=== PATIENT | male | born 1970 | race Caucasian/White ===

== ENCOUNTER 2020-10-16 10:42 | Inpatient (IN) ==
[2020-10-16] MEDS ORDERED: SODIUM CHLORIDE 0.9% 1000ML 2,000 ML IV ONE (10:58)
[2020-10-16 11:41] LABS: iSTAT Hemoglobin 16.7 g/dl (14.0-18.0); iSTAT Ionized Calcium 1.17 mmol/l (1.12-1.32); iSTAT Potassium 4.1 mmol/L (3.3-5.0)
[2020-10-16] MEDS ORDERED: OPTIRAY 320 100ml IV ONE (11:46)
--- NOTE | 2020-10-16 11:52 | Emergency Department Note ---
Impression & Plan Peritonsillar abscess, Uvular edema, Leukocytosis ED Provider Note NAME: DARRELL CAMPO AGE: 50 SEX: M : 1970 ARRIVES VIA: Walk-In INFORMANT: Patient ED PROVIDER(S): Elvis Esquivel DO CHIEF COMPLAINT: Swelling of the right side of his neck HPI: Patient is a 50-year-old male who presents to the ER for swelling of the right side of his neck. He notes that he has been having trouble swallowing and this has been getting worse over the past 24 hours. He denies any headache or change in vision. Has been gagging on some secretions. He has trouble opening his mouth. Denies any chest pain or shortness of breath. No nausea, vomiting, or diarrhea. He was seen at [facility] and referred him. He had a strep swab which was negative at [facility]. Denies any dental pain. Patient was given steroids prior to being transferred from [facility]. ROS: See above HPI for pertinent positives & negatives. A total of 10 systems reviewed and were otherwise negative. PAST MEDICAL HISTORY:See Below PAST SURGICAL HISTORY:See Below FAMILY HISTORY:See Below SOCIAL HISTORY:See Below HOME MEDICATIONS:See Below ALLERGIES:See Below VITALS:See Below PHYSICAL EXAMINATION: GENERAL: Sitting up in bed, alert, well appearing, well nourished, no distress, non-toxic EYE EXAM: normal conjunctiva. OROPHARYNX: Significantly enlarged uvula blocking the posterior oropharynx. No appreciable abscess. No swelling below the tongue. No obvious abscess along dental gumline. NECK: supple, fullness under the right mandible over the right side of the neck LUNGS: Clear to auscultation. Normal chest wall mechanics HEART: no murmurs, S1 normal and S2 normal ABDOMEN: abdomen soft, non-tender, normo-active bowel sounds, no masses, no rebound or guarding. UPPER EXTREMITIES: upper extremities are grossly normal. LOWER EXTREMITIES: No pitting edema. NEURO EXAM: Normal sensorium, cranial nerves II-XII grossly intact, normal speech, no gross weakness of arms, no gross weakness of legs. MEDICAL DECISION MAKING: Patient is a 50-year-old male that presents the ER for trouble swallowing and opening his mouth. On exam he does have trismus, significantly swollen uvula and fullness in the posterior pharynx. IV was established blood work was obtained. Strep was negative as an outpatient. Labs show leukocytosis 17,000. No significant anemia. BMP slightly elevated chloride. LFTs bilirubin was unremarkable. Covid was negative. Discussed with Dr. CHO following having a CT which showed a 3 x 2 cm peritonsillar abscess. Patient was given IV antibiotics. He received IM steroids prior to arrival. He was updated bedside. Discussed with the hospitalist for admission as Dr. Anderson will take him to the OR for the peritonsillar abscess. Triage Nursing notes reviewed. Limited review of prior medical records performed Vital Signs: reviewed and remarkable for no significant abnormalities Differential diagnosis: Differential diagnosis includes etiologies such as viral syndrome, tonsillitis, streptococcal pharyngitis, mononucleosis, peritonsillar abscess, retropharyngeal abscess, otitis, pneumonia, influenza, as well as others were entertained. ER treatment provided: See below Diagnostics interpreted by me: ECG: none Cardiac Monitoring: An order was placed for continuous cardiac monitoring. The monitor shows a rate of 70 with sinus rhythm. Laboratory studies: As stated above and show below. Imaging studies: CT of the neck as discussed above Consultation(s): Discussed with Dr. Anderson who recommended admission and he will take to the OR Discussed with Dr. Brianda Francis for admission Procedures: none Critical Care: None Past Med/Surg History Medical History No pertinent past medical history Tick bites Surgical History No significant past surgical history Family History Other Cancer Heart problem Social History (Updated 10/16/20 @ 13:25 by Brianda Francis MD) Smoking Status: Former smoker Tobacco Type: Cigarettes Age Quit Using Tobacco: 33; Hx Alcohol Use: Yes Alcohol Intake Frequency: Monthly or Less Hx Substance Use: No Preferred Language: [place] current occupational status: employed current occupation: [employer] Feels Safe at Home: Yes Allergies Allergies Allergy/AdvReac Type Severity Reaction Status Date / Time No Known Allergies Allergy Unverified 10/16/20 13:29 Home Meds Home Medications Medication Instructions Recorded Confirmed olive leaf extract 250 mg PO BID 10/16/20 10/16/20 Results & Data (ED) Vital Signs Vital Signs - 24 hr 10/16/20 10:45 Temperature 36.8 C Temperature Source Temporal Artery Scan Pulse Rate 73 Respiratory Rate 20 Respiratory Effort / Characteristics Non-Labored Spontaneous Respiratory Depth Normal Blood Pressure 107/70 Blood Pressure Mean 82 Blood Pressure Position Sitting Pulse Oximetry 100 Oxygen Delivery Method Room Air Sepsis Recent Fever Within 48 Hours Yes Sepsis New/Unexplained Change in Mental Status N/A Sepsis Action Taken by Nursing MD Previously Notified Laboratory Data Result diagrams: 10/16/20 11:19 10/16/20 11:19 Lab Results 10/16/20 10/16/20 10/16/20 Range/Units 11:19 11:19 11:28 WBC 17.57 H (4.8-10.8) K/uL RBC 5.23 (4.7-6.1) M/uL Hgb 16.7 (14.0-18.0) g/dL POC Hgb 16.7 (14.0-18.0) g/dl Hct 48.4 (42-52) % POC Hct 49 (42-52) % MCV 92.5 (80-100) fL MCH 31.9 (25-34) pg MCHC 34.5 (32-36) g/dL RDW Std Deviation 46.2 (36.4-46.3) fL RDW Coeff of Yared 13.6 (11.5-14.5) % Plt Count 225 (130-400) K/uL MPV 9.6 (7.4-10.4) fL Immature Gran % (Auto) 0.2 % Neut % (Auto) 85.2 % Lymph % (Auto) 5.4 % [place] % (Auto) 9.0 % Eos % (Auto) 0.1 % Baso % (Auto) 0.1 % Neut # (Auto) 15.00 H (1.4-6.5) K/uL Lymph # (Auto) 0.94 L (1.2-3.4) K/uL [place] # (Auto) 1.58 H (0.11-0.59) K/uL Eos # (Auto) 0.01 (0-0.5) K/uL Baso # (Auto) 0.01 (0-0.2) K/uL Immature Gran # (Auto) 0.03 H (0.00-0.02) K/uL POC Sodium 139 (135-144) mmol/L Sodium 139 (136-145) mmol/L POC Potassium 4.1 (3.3-5.0) mmol/L Potassium 4.0 (3.5-5.1) mmol/L POC Chloride 104 (101-112) mmol/L Chloride 108 H (98-107) mmol/L Carbon Dioxide 24 (21-32) mmol/L POC Total CO2 21 L (24-31) mmol/L Anion Gap 7.0 (3-11) POC Anion Gap 20.0 (16-25) mmol/L POC BUN 16 (7-18) mg/dl BUN 16 (7-18) mg/dl Creatinine 1.11 (0.6-1.4) mg/dl POC Creatinine 1.0 (0.6-1.3) mg/dl Est Cr Clr Drug Dosing 81.8 ml/min Est GFR ( Amer) 89.3 ml/min Est GFR (Non-Af Amer) 77.0 ml/min BUN/Creatinine Ratio 14.2 (10-20) Glucose 106 H (70-99) mg/dl POC Glucose (other) 119 H (70-99) mg/dl Calcium 8.6 (8.5-10.1) mg/dl POC Ioniz Calcium Benjamin 1.17 (1.12-1.32) mmol/l Total Bilirubin 1.1 H (0.2-1) mg/dl AST 14 L (15-37) U/L ALT 22 (12-78) U/L Alkaline Phosphatase 63 (45-117) U/L Total Protein 7.1 (6.4-8.2) gm/dl Albumin 3.6 (3.4-5.0) gm/dl Globulin 3.5 (2.5-4.0) gm/dl Albumin/Globulin Ratio 1.0 (0.9-2) COVID-19 Eval Order SARS-CoV-2 (PCR) (Negative) 10/16/20 10/16/20 Range/Units 12:44 12:44 WBC (4.8-10.8) K/uL RBC (4.7-6.1) M/uL Hgb (14.0-18.0) g/dL POC Hgb (14.0-18.0) g/dl Hct (42-52) % POC Hct (42-52) % MCV (80-100) fL MCH (25-34) pg MCHC (32-36) g/dL RDW Std Deviation (36.4-46.3) fL RDW Coeff of Yared (11.5-14.5) % Plt Count (130-400) K/uL MPV (7.4-10.4) fL Immature Gran % (Auto) % Neut % (Auto) % Lymph % (Auto) % [place] % (Auto) % Eos % (Auto) % Baso % (Auto) % Neut # (Auto) (1.4-6.5) K/uL Lymph # (Auto) (1.2-3.4) K/uL [place] # (Auto) (0.11-0.59) K/uL Eos # (Auto) (0-0.5) K/uL Baso # (Auto) (0-0.2) K/uL Immature Gran # (Auto) (0.00-0.02) K/uL POC Sodium (135-144) mmol/L Sodium (136-145) mmol/L POC Potassium (3.3-5.0) mmol/L Potassium (3.5-5.1) mmol/L POC Chloride (101-112) mmol/L Chloride (98-107) mmol/L Carbon Dioxide (21-32) mmol/L POC Total CO2 (24-31) mmol/L Anion Gap (3-11) POC Anion Gap (16-25) mmol/L POC BUN (7-18) mg/dl BUN (7-18) mg/dl Creatinine (0.6-1.4) mg/dl POC Creatinine (0.6-1.3) mg/dl Est Cr Clr Drug Dosing ml/min Est GFR ( Amer) ml/min Est GFR (Non-Af Amer) ml/min BUN/Creatinine Ratio (10-20) Glucose (70-99) mg/dl POC Glucose (other) (70-99) mg/dl Calcium (8.5-10.1) mg/dl POC Ioniz Calcium Benjamin (1.12-1.32) mmol/l Total Bilirubin (0.2-1) mg/dl AST (15-37) U/L ALT (12-78) U/L Alkaline Phosphatase (45-117) U/L Total Protein (6.4-8.2) gm/dl Albumin (3.4-5.0) gm/dl Globulin (2.5-4.0) gm/dl Albumin/Globulin Ratio (0.9-2) COVID-19 Eval Order Covid19 at [facility] SARS-CoV-2 (PCR) NEGATIVE (Negative) Administered Medications Discontinued Medications Dexamethasone (Dexamethasone Sod Inj 4 Mg/Ml Vial) Confirm Administered Dose 8 mg .ROUTE .STK-MED ONE Stop: 10/16/20 13:32 Last Admin: 10/16/20 13:37 Dose: Not Given Documented by: [id number] Sodium Chloride (Nss 1000ml) 2,000 mls @ 999 mls/hr IV .Q2H1M ONE Stop: 10/16/20 12:58 Last Infusion: 10/16/20 13:25 Dose: 0 mls/hr Documented by: [id number] Admin: 10/16/20 11:07 Dose: 999 mls/hr Documented by: [id number] Ampicillin Sodium/Sulbactam Sodium 3,000 mg/ Sodium Chloride 108 mls @ 200 mls/hr IV NOW STA; Protocol Stop: 10/16/20 12:48 Last Infusion: 10/16/20 13:25 Dose: 0 mls/hr Documented by: [id number] Admin: 10/16/20 12:51 Dose: 200 mls/hr Documented by: [id number] Dexamethasone 6 mg/ Syringe 1.5 mls @ 1 mls/min IV ONE ONE Stop: 10/16/20 13:21 Last Admin: 10/16/20 13:37 Dose: 1 mls/min Documented by: [id number] Ioversol (Optiray 320 100ml) 95 ml IV ONCE ONE Stop: 10/16/20 11:47 Last Admin: 10/16/20 11:47 Dose: 95 ml Documented by: [id number] Imaging Data Radiologist's Impression: Soft Tissue Neck CT 10/16/20 10:58 CT soft tissue neck w con HISTORY: trouble swallow neck swelling TECHNIQUE: Multiaxial CT images of the neck were performed following the intravenous administration of 95 cc of Optiray 320 and reformatted in the sagittal and coronal plane at the workstation by the radiologist. COMPARISON STUDY: None. FINDINGS: The visualized brain parenchyma and orbits are unremarkable. The pterygopalatine fossa are well-maintained. Asymmetric mucosal thickening and edema within the right nasopharynx, right oropharynx, and right hypopharynx to the level of the pyriform sinuses with mild mass effect along the airway. However, no significant airway narrowing. The epiglottis are normal in thickness. The uvula is also markedly thickened and edematous measuring up to 1.5 cm in diameter. Best seen on axial images 85 through 123 there is a mult iseptated peripherally enhancing right peritonsillar fluid collection consistent with an abscess. This has an elongated appearance and measures up to 3 cm in the craniocaudal dimension and up to 1.3 cm in axial dimension. There is edema/fat stranding within the right paratracheal fat spaces and adjacent to the right submandibular gland. There are few mildly enlarged right submandibular lymph nodes and a borderline enlarged right upper cervical lymph nodes. These are likely reactive. There is a 6 mm left parotid gland stone. The thyroid gland enhances normally. The major cervical vessels appear patent. Mild mucosal thickening within the maxillary sinuses. The mastoid air cells are clear. No s uspicious lytic or blastic osseous lesions. The lung apices are clear. No pneumothorax. IMPRESSION: 1. A 3.0 x 1.5 cm elongated right peritonsillar multiseptated abscess as described above. 2. Mucosal thickening and enhancement along the right pharyngeal/hypopharyngeal soft tissues. This is consistent with a superimposed pharyngitis and could be reactive to the peritonsillar abscess. 3. Marked thickening of the uvula. 4. Mild right cervical and submandibular lymphadenopathy. This is likely reactive. 5. Consider follow-up to ensure resolution of the suspected right peritonsillar abscess and to exclude the less likely possibility of an underlying lesion. ACT 112: Negative or not required by law. Electronically signed by: Link York M.D. 10/16/2020 12:10 PM Discharge Plan Visit Data Chief Complaint: Illness Stated Complaint: SWOLLEN GLANDS/TIGHTENED AIRWAY ED Provider: Elvis Esquivel Discharge Problem: Peritonsillar abscess, Uvular edema, Leukocytosis Forms Stand Alone Forms: My [facility] [employer] Apps Prescriptions Prescriptions: No Action olive leaf extract 250 mg Capsule 250 mg PO BID RF: 0 Discharge Problem: Leukocytosis Qualifiers: Leukocytosis type: unspecified Qualified Code(s): D72.829 - Elevated white blood cell count, unspecified
[2020-10-16 12:01] LABS: Basophils # (auto) 0.01 K/uL (0-0.2); Basophils % (auto) 0.1 %; Eosinophils # (auto) 0.01 K/uL (0-0.5); Eosinophils % (auto) 0.1 %; Hematocrit (blood only) 48.4 % (42-52); Hemoglobin 16.7 g/dL (14.0-18.0); Immature Granulocytes # (auto) 0.03 K/uL (0.00-0.02); Immature Granulocytes % (auto) 0.2 %; Lymphocytes # (auto) 0.94 K/uL (1.2-3.4); Lymphocytes % (auto) 5.4 %; Mean Corpuscular Hemoglobin 31.9 pg (25-34); Mean Corpuscular Hgb Conc 34.5 g/dL (32-36); Mean Corpuscular Volume 92.5 fL (80-100); Mean Platelet Volume 9.6 fL (7.4-10.4); Monocytes # (auto) 1.58 K/uL (0.11-0.59); Neutrophils % (auto) 85.2 %; Platelet Count 225 K/uL (130-400); RDW Coefficient of Variation 13.6 % (11.5-14.5); RDW Standard Deviation 46.2 fL (36.4-46.3); Red Blood Count 5.23 M/uL (4.7-6.1); White Blood Count 17.57 K/uL (4.8-10.8)
--- NOTE | 2020-10-16 12:12 | CT Scan Report ---
CT soft tissue neck w con HISTORY: trouble swallow neck swelling TECHNIQUE: Multiaxial CT images of the neck were performed following the intravenous administration o f 95 cc of Optiray 320 and reformatted in the sagittal and coronal plane at the workstation by the ra diologist. COMPARISON STUDY: None. FINDINGS: The visualized brain parenchyma and orbits are unremarkable. The pterygopalatine fossa are well-maintained. Asymmetric mucosal thickening and edema within the right nasopharynx, right orophary nx, and right hypopharynx to the level of the pyriform sinuses with mild mass effect along the airway . However, no significant airway narrowing. The epiglottis are normal in thickness. The uvula is also markedly thickened and edematous measuring up to 1.5 cm in diameter. Best seen on axial images 85 th rough 123 there is a multiseptated peripherally enhancing right peritonsillar fluid collection consis tent with an abscess. This has an elongated appearance and measures up to 3 cm in the craniocaudal di mension and up to 1.3 cm in axial dimension. There is edema/fat stranding within the right paratrache al fat spaces and adjacent to the right submandibular gland. There are few mildly enlarged right subm andibular lymph nodes and a borderline enlarged right upper cervical lymph nodes. These are likely re active. There is a 6 mm left parotid gland stone. The thyroid gland enhances normally. The major cerv ical vessels appear patent. Mild mucosal thickening within the maxillary sinuses. The mastoid air viki ls are clear. No suspicious lytic or blastic osseous lesions. The lung apices are clear. No pneumotho rax. IMPRESSION: 1. A 3.0 x 1.5 cm elongated right peritonsillar multiseptated abscess as described above. 2. Mucosal thickening and enhancement along the right pharyngeal/hypopharyngeal soft tissues. This is consistent with a superimposed pharyngitis and could be reactive to the peritonsillar abscess. 3. Marked thickening of the uvula. 4. Mild right cervical and submandibular lymphadenopathy. This is likely reactive. 5. Consider follow-up to ensure resolution of the suspected right peritonsillar abscess and to exclud e the less likely possibility of an underlying lesion. ACT 112: Negative or not required by law. Electronically signed by: Link Yokr M.D. 10/16/2020 12:10 PM
[2020-10-16] MEDS ORDERED: AMPICILLIN/SULBACTAM SOD 3,000 MG in 0.9 % SODIUM CHLORIDE 100 ML IV STA (12:16)
[2020-10-16 12:17] LABS: Albumin Level 3.6 gm/dl (3.4-5.0); BUN Creatinine Ratio 14.2 (10-20); Calcium 8.6 mg/dl (8.5-10.1); Creatinine Clr Calc Pharmacy 81.8 ml/min; Est GFR (African American) 89.3 ml/min
[2020-10-16 12:20] LABS: Bilirubin,Total 1.1 mg/dl (0.2-1); Globulin 3.5 gm/dl (2.5-4.0); Total Protein 7.1 gm/dl (6.4-8.2)
--- NOTE | 2020-10-16 12:52 | History & Physical Report ---
Date of Service October 16, 2020 Assessment & Plan (1) Peritonsillar abscess: Presents with sore throat and right-sided neck swelling along with significant uvular edema With leukocytosis, fevers and chills at home, vital signs stable here. Airway is patent on imaging and patient is able to speak but has significant trismus Rapid strep test reportedly negative at urgent care With peritonsillar abscess 3.0 x 1.5 cm of the right side seen on CT neck No evidence of sepsis at this time -Admit to PCU, airway is patent but will cautiously watch for worsening -Received 1 dose of IM steroids at urgent care-we will continue with dexamethasone 6 mg IV every 6 hours -Continue IV Unasyn 1.5 g IV every 6 hours-received loading dose of 3 g in the ER -Consult ENT-plans for surgical drainage today -Keep patient n.p.o. -Start normal saline at 100 mL's per hour while n.p.o. -IV acetaminophen for fevers or pain -Draw blood cultures -Follow CBC, CMP in the morning -Awaiting Covid test-pending at the time of admission (2) Uvular edema: As above Treating with antibiotics and steroids (3) Leukocytosis: Secondary to peritonsillar abscess, WBC count 17.9 Follow CBC in the morning Should improve with antibiotics and surgical drainage of abscess (4) Hyperbilirubinemia: Mildly elevated 1.1 Likely secondary to acute illness Follow LFTs in the morning (5) DVT prophylaxis: SCDs only as is going to surgical procedure Disposition-bring in on observation PCU Of note, patient does not have a PCP and has not been seen by doctor in many years. He will need assistance with getting a PCP at the time of discharge History of Present Illness Chief Complaint: Neck pain and swelling Primary Care Provider: NO PCP This patient is a 50-year-old male who presents to the ER from [facility] urgent care after presenting there with right facial/neck swelling and sore throat. He has been having trouble swallowing which is getting worse over the past 24 hours. He has been gagging on some secretions and having trouble opening his mouth. Denies chest pain or shortness of breath, no nausea or vomiting or diarrhea. He did have chills and sweats overnight last night. At the [facility], he had a swab for strep which was negative and he also received intramuscular steroids prior to coming to the ER. In the ER, he was found to have a significant leukocytosis of 17, his uvula was significantly enlarged and was blocking the posterior oropharynx and a CT scan of the soft tissue of the neck with contrast showed a 3.0 x 1.5 cm elongated right peritonsillar multiseptated abscess, mucosal thickening and enhancement along the right pharyngeal/hypopharyngeal soft tissues consistent with superimposed pharyngitis, marked thickening of the uvula, mild right cervical and submandibul ar lymphadenopathy. The patient's fianc reports that the right-sided neck swelling is already improving since receiving steroids 3 hours prior. He was given IV Unasyn and ENT was contacted by the ER physician who plans to take him to the OR today for surgical drainage. Allergies Allergy/AdvReac Type Severity Reaction Status Date / Time No Known Allergies Allergy Unverified 10/16/20 13:29 Home Medications Medication Instructions Recorded Confirmed Type olive leaf extract 250 mg PO BID 10/16/20 10/16/20 History Past Med/Surg History Medical History No pertinent past medical history Tick bites Surgical History No significant past surgical history Family History Other Cancer Heart problem Social History (Updated 10/16/20 @ 13:25 by Brianda Francis MD) Smoking Status: Former smoker Tobacco Type: Cigarettes Age Quit Using Tobacco: 33; Hx Alcohol Use: Yes Alcohol Intake Frequency: Monthly or Less Hx Substance Use: No Preferred Language: Iranian current occupational status: employed current occupation: [employer] Feels Safe at Home: Yes Review of Systems Review of Systems: All systems reviewed & are unremarkable except as noted in HPI & below Denies headache or lightheadedness, positive chills last night as per HPI, no chest pain or shortness of breath, no abdominal pain, no nausea vomiting, no diarrhea, no skin rashes or joint pains. Physical Exam Constitutional: WD/WN, vitals as above Eyes: PERRL, conjunctivae normal, anicteric sclerae ENMT: Ears: no hearing impairment, no external ear abnormality, no EAC abnormality and no TM abnormality Nose: no external nose abnormality Mouth: + oropharynx abnormality (Significantly enlarged uvula, positive swelling right tonsil, no erythema ) Throat: + uvular edema Neck: trachea midline, no thyromegaly + abnormal visual inspection (Mild amount of swelling right submandibular region) Respiratory: normal respiratory effort, lungs clear to auscultation Cardiovascular: RRR, no murmur, no edema Chest (Breasts): Chest: normal inspection of chest Gastrointestinal (Abdomen): normal bowel sounds, soft, nontender, no hepatosplenomegaly Musculoskeletal: Extremities: extremities normal to inspection; no cyanosis and no clubbing Skin: no rashes, warm and dry Neurologic: moves all extremities and awake; no focal motor deficits Psychiatric: A+Ox3, euthymic affect Lymphatic: no lymphedema Results & Data Results & Data ([facility]) Vital Signs (Past 12 Hours) Vital Signs Temp Pulse Resp BP Pulse Ox 10/16/20 10:45 36.8 C 73 20 107/70 100 Laboratory Results 10/16/20 10/16/20 10/16/20 Range/Units 11:28 11:19 11:19 WBC 17.57 H (4.8-10.8) K/uL RBC 5.23 (4.7-6.1) M/uL Hgb 16.7 (14.0-18.0) g/dL POC Hgb 16.7 (14.0-18.0) g/dl Hct 48.4 (42-52) % POC Hct 49 (42-52) % MCV 92.5 (80-100) fL MCH 31.9 (25-34) pg MCHC 34.5 (32-36) g/dL RDW Std Deviation 46.2 (36.4-46.3) fL RDW Coeff of Yared 13.6 (11.5-14.5) % Plt Count 225 (130-400) K/uL MPV 9.6 (7.4-10.4) fL Immature Gran % (Auto) 0.2 % Neut % (Auto) 85.2 % Lymph % (Auto) 5.4 % Freeborn % (Auto) 9.0 % Eos % (Auto) 0.1 % Baso % (Auto) 0.1 % Neut # (Auto) 15.00 H (1.4-6.5) K/uL Lymph # (Auto) 0.94 L (1.2-3.4) K/uL Freeborn # (Auto) 1.58 H (0.11-0.59) K/uL Eos # (Auto) 0.01 (0-0.5) K/uL Baso # (Auto) 0.01 (0-0.2) K/uL Immature Gran # (Auto) 0.03 H (0.00-0.02) K/uL POC Sodium 139 (135-144) mmol/L Sodium 139 (136-145) mmol/L POC Potassium 4.1 (3.3-5.0) mmol/L Potassium 4.0 (3.5-5.1) mmol/L POC Chloride 104 (101-112) mmol/L Chloride 108 H (98-107) mmol/L Carbon Dioxide 24 (21-32) mmol/L POC Total CO2 21 L (24-31) mmol/L Anion Gap 7.0 (3-11) POC Anion Gap 20.0 (16-25) mmol/L POC BUN 16 (7-18) mg/dl BUN 16 (7-18) mg/dl Creatinine 1.11 (0.6-1.4) mg/dl POC Creatinine 1.0 (0.6-1.3) mg/dl Est Cr Clr Drug Dosing 81.8 ml/min Est GFR ( Amer) 89.3 ml/min Est GFR (Non-Af Amer) 77.0 ml/min BUN/Creatinine Ratio 14.2 (10-20) Glucose 106 H (70-99) mg/dl POC Glucose (other) 119 H (70-99) mg/dl Calcium 8.6 (8.5-10.1) mg/dl POC Ioniz Calcium Benjamin 1.17 (1.12-1.32) mmol/l Total Bilirubin 1.1 H (0.2-1) mg/dl AST 14 L (15-37) U/L ALT 22 (12-78) U/L Alkaline Phosphatase 63 (45-117) U/L Total Protein 7.1 (6.4-8.2) gm/dl Albumin 3.6 (3.4-5.0) gm/dl Globulin 3.5 (2.5-4.0) gm/dl Albumin/Globulin Ratio 1.0 (0.9-2) Diagnostic Findings Soft Tissue Neck CT 10/16/20 10:58 CT soft tissue neck w con HISTORY: trouble swallow neck swelling TECHNIQUE: Multiaxial CT images of the neck were performed following the intravenous administration of 95 cc of Optiray 320 and reformatted in the sagittal and coronal plane at the workstation by the radiologist. COMPARISON STUDY: None. FINDINGS: The visualized brain parenchyma and orbits are unremarkable. The pterygopalatine fossa are well-maintained. Asymmetric mucosal thickening and edema within the right nasopharynx, right oropharynx, and right hypopharynx to the level of the pyriform sinuses with mild mass effect along the airway. However, no significant airway narrowing. The epiglottis are normal in thickness. The uvula is also markedly thickened and edematous measuring up to 1.5 cm in diameter. Best seen on axial images 85 through 123 there is a multiseptated peripherally enhancing right peritonsillar fluid collection consistent with an abscess. This has an elongated appearance and measures up to 3 cm in the craniocaudal dimension and up to 1.3 cm in axial dimension. There is edema/fat stranding within the right paratracheal fat spaces and adjacent to the right submandibular gland. There are few mildly enlarged right submandibular lymph nodes and a borderline enlarged right upper cervical lymph nodes. These are likely reactive. There is a 6 mm left parotid gland stone. The thyroid gland enhances normally. The major cervical vessels appear patent. Mild mucosal thickening within the maxillary sinuses. The mastoid air cells are clear. No suspicious lytic or blastic osseous lesions. The lung apices are clear. No pneumothorax. IMPRESSION: 1. A 3.0 x 1.5 cm elongated right peritonsillar multiseptated abscess as described above. 2. Mucosal thickening and enhancement along the right pharyngeal/hypopharyngeal soft tissues. This is consistent with a superimposed pharyngitis and could be reactive to the peritonsillar abscess. 3. Marked thickening of the uvula. 4. Mild right cervical and submandibular lymphadenopathy. This is likely reactive. 5. Consider follow-up to ensure resolution of the suspected right peritonsillar abscess and to exclude the less likely possibility of an underlying lesion. ACT 112: Negative or not required by law. Electronically signed by: Link York M.D. 10/16/2020 12:10 PM Code Status & VTE Plan Code Status Full code VTE Prophylaxis Plan VTE Prophylaxis will be ordered: Yes PG Care Time/CCT Total # of Minutes Spent Total Time Spent with Patient: Total time spent is greater than 50% in coordination of care (as documented) at patient's floor/unit and/or counseling patient: Coding Level of Care Code 34367 OBS Care - Level 3 Diagnoses Peritonsillar abscess J36 Uvular edema K13.79 Leukocytosis D72.829 Hyperbilirubinemia E80.6 DVT prophylaxis Z29.9
[2020-10-16] MEDS ORDERED: dexAMETHasone 6 MG in SYRINGE 0 ML IV ONE (13:20)
[2020-10-16] MEDS ORDERED: DEXAMETHASONE SOD INJ 4 MG/ML VIAL ONE ×2 (13:31→16:04)
[2020-10-16] MEDS ORDERED: BUPIVACAINE/EPINEPHRINE 0.5% MPF 1:200,000 30 ML VIAL ONE (14:04)
[2020-10-16] MEDS ORDERED: ONDANSETRON INJ 2 MG/ML 2 ML VIAL IV PRN ×2 (15:19→16:05)
[2020-10-16] MEDS ORDERED: ACETAMINOPHEN 1,000 MG/100 ML VIAL IV PRN (15:19)
[2020-10-16] MEDS ORDERED: LIDOCAINE 2%/EPINEPHRINE 1:100,000 20ML ONE (15:43)
--- NOTE | 2020-10-16 15:57 | History & Physical Report ---
Date of Service October 16, 2020 Assessment & Plan (1) Peritonsillar abscess in pediatric patient: incision and drainage right peritonsillar abcess Admission and Anticipated Discharge Date Admission Date: October 16, 2020 History of Present Illness Chief Complaint: sore throat Primary Care Provider: NO PCP 50 yo WM with right side peritonsillar abcess, [address] Allergies Allergy/AdvReac Type Severity Reaction Status Date / Time No Known Allergies Allergy Unverified 10/16/20 13:29 Home Medications Medication Instructions Recorded Confirmed Type olive leaf extract 250 mg PO BID 10/16/20 10/16/20 History Past Med/Surg History Medical History No pertinent past medical history Tick bites Surgical History No significant past surgical history Family History Other Cancer Heart problem Social History (Updated 10/16/20 @ 13:25 by Brianda Francis MD) Smoking Status: Former smoker Tobacco Type: Cigarettes Age Quit Using Tobacco: 33; Smoking End Date: 2004; Hx Alcohol Use: Yes Alcohol type: beer and wine Alcohol Intake Frequency: Monthly or Less Hx Substance Use: No Preferred Language: Comoran 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 Beliefs That Will Affect Care: None Current Living Situation: Family current occupational status: employed current occupation: [employer] Other Information That Helps Us Care for You: No Feels Safe at Home: Yes Safety Concerns: Feels Safe At This Time Assistive Devices: None Physical Exam Constitutional: WD/WN, vitals as above Eyes: PERRL, conjunctivae normal, anicteric sclerae ENMT: Mouth: + oropharynx abnormality (right soft palate and uvular swelling, erythema) Neck: tender right BALTA area Respiratory: normal respiratory effort, lungs clear to auscultation Cardiovascular: RRR, no murmur, no edema Results & Data Results & Data ([facility]) Vital Signs (Past 12 Hours) Vital Signs Temp Pulse Pulse Resp BP BP Pulse Ox 10/16/20 15:49 36.7 C 81 18 125/80 95 10/16/20 15:20 37.9 C H 72 16 119/75 93 10/16/20 10:45 36.8 C 73 20 107/70 100 Code Status & VTE Plan VTE Prophylaxis Plan VTE Prophylaxis will be ordered: Yes PG Care Time/CCT Total # of Minutes Spent Total Time Spent with Patient: Total time spent is greater than 50% in coordination of care (as documented) at patient's floor/unit and/or counseling patient: Coding Level of Care Code None Diagnoses Peritonsillar abscess in pediatric patient J36
[2020-10-16] MEDS ORDERED: ONDANSETRON INJ 2 MG/ML 2 ML VIAL ONE (16:04)
[2020-10-16] MEDS ORDERED: LIDOCAINE 2% 2 ML VIAL/AMP(20MG/ML) INFIL ONE (16:04)
[2020-10-16] MEDS ORDERED: PROPOFOL IV EMULSION 10 MG/ML 20 ML VIAL IV ONE (16:04)
--- NOTE | 2020-10-16 16:04 | Anesthesiology Consultation ---
Date of Service October 16, 2020 Assessment & Plan Chart Review Chart Review: Acceptable Risk for Surgery Consults Requested none History Surgery Operation Date: 10/16/20 12:05 Proposed Procedures p Right Peritonsillar Abscess Incision & Drainage - Josette Anderson MD Height/Weight Height: 5 ft 10 in Weight: 72.6 kg Allergies Allergy/AdvReac Type Severity Reaction Status Date / Time No Known Allergies Allergy Unverified 10/16/20 13:29 Medications Home Medications Medication Instructions Recorded Confirmed Last Taken olive leaf extract 250 mg PO BID 10/16/20 10/16/20 10/16/20 NPO Date Last Intake of Fluids: 10/16/20 Time Last Intake of Fluids: 07:00 Date Last Intake of Solids: 10/16/20 Time Last Intake of Solids: 07:00 Past Medical History Medical History No pertinent past medical history Tick bites Past Family History Family History Other Cancer Heart problem Past Surgical History Surgical History No significant past surgical history Social History Smoking Status: Former smoker Smoking End Date: 2004 Hx Alcohol Use: Yes Alcohol type: beer and wine alcohol intake frequency: holidays/special occasions only Hx Substance Use: No Physical Exam Vital Signs Last Vital Signs Temp 36.7 C 10/16/20 15:49 Pulse 78 10/16/20 15:58 Resp 18 10/16/20 15:49 BP 125/80 10/16/20 15:49 Pulse Ox 95 10/16/20 15:49 Testing Laboratory Results 10/16/20 11:19 10/16/20 11:19 10/16/20 11:28 POC Glucose (other) 119 H
[2020-10-16] MEDS ORDERED: MIDAZOLAM HCL 1 MG/ML 2ML VIAL ONE (16:05)
[2020-10-16] MEDS ORDERED: fentaNYL citrate 100 MCG/2 ML VIAL ONE (16:05)
[2020-10-16] MEDS ORDERED: ePHEDrine sulfate 50 MG/ML AMP IV PRN (16:05)
[2020-10-16] MEDS ORDERED: PROMETHAZINE HCL 12.5 MG in SODIUM CHLORIDE 0.9% 50 ML IV PRN (16:05)
[2020-10-16] MEDS ORDERED: ATROPINE SULFATE 0.1 MG/ML 10ML SYR IV PRN (16:05)
[2020-10-16] MEDS ORDERED: HYDROmorphone INJ 2 MG/ML SYR/VIAL IV PRN (16:05)
[2020-10-16] MEDS ORDERED: METOCLOPRAMIDE HCL INJ 5 MG/ML 2 ML VIAL IV PRN (16:05)
[2020-10-16] MEDS ORDERED: fentaNYL citrate 100 MCG/2 ML VIAL IV PRN (16:05)
--- NOTE | 2020-10-16 16:48 | Operative Report ---
PG Post Operative Report Pre & Post Diagnosis Operation Date: 10/16/20 12:05 Pre-Op Diagnosis: Peritonsillar Abscess Post-Op Diagnosis: Peritonsillar Abscess I identified the patient and participated in the time-out.: Yes Procedure Operation Date: 10/16/20 12:05 Actual Procedures p Right Peritonsillar Abscess Incision & Drainage(Right) - Josette Anderson MD Surgeon Josette Anderson MD Resistor Coater None Estimated Blood Loss 5 Findings Consistent with Post-Op Diagnosis Specimens None Anesthesia Type General Complications none Disposition Accompanied Patient To Recovery: Yes Disposition: Recovery Room Indications Right soft palate swelling and uvular edema, CT scan showed behind right tonsil 3 cm abscess Description of Procedure He was brought to the operative room, properly identified, prepped and draped in usual sterile manner. He was sedated. The right peritonsillar area was injected with 2% Xylocaine with 1-1000 strength epinephrine for anesthesia. The abscess cavity was aspirated using 18-gauge needle. Less than 1 cc of pus was obtained for culture. The abscess cavity was opened using #12 blade and the tissue was spread open in the peritonsillar space using the tonsillar hemostat opening up the abscess cavity. Minimal further purulent material was obtained. The abscess cavity was suctioned clean. He tolerated procedure well was taken recovery area in satisfactory condition. I attest to the content of the Intraoperative Record and any orders documented therein. Any exceptions are noted below.
--- NOTE | 2020-10-16 17:14 | Anesthesiology Progress Note ---
Date of Service October 16, 2020 Anesthesia Post Procedure Vital Signs Vital Signs: Temp Pulse Pulse Resp BP BP Pulse Ox 10/16/20 16:55 36.8 C 71 16 118/82 95 10/16/20 16:48 73 16 95 10/16/20 16:43 36.6 C 75 16 121/86 95 10/16/20 15:58 78 10/16/20 15:49 36.7 C 81 18 125/80 95 10/16/20 15:20 37.9 C H 72 16 119/75 93 10/16/20 10:45 36.8 C 73 20 107/70 100 Pain Intensity Throat: Pain Intensity: 9 Transfer of Care Handoff Completed per policy Notes Mental Status: alert / awake / arousable and participated in evaluation Patient Amnestic to Procedure: Yes Nausea / Vomiting: adequately controlled Pain: adequately controlled Airway Patency, RR, SpO2: stable & adequate BP & HR: stable & adequate Hydration State: stable & adequate Anesthetic Complications: no major complications apparent
[2020-10-16] MEDS: SODIUM CHLORIDE 0.9% 1000ML 1,000 ML IV SCH (17:27)
[2020-10-16] MEDS: AMPICILLIN/SULBACTAM SOD 1,500 MG in 0.9 % SODIUM CHLORIDE 100 ML IV SCH (17:27)
[2020-10-16] MEDS: dexAMETHasone 6 MG in SYRINGE 0 ML IV SCH (19:46)
[2020-10-17] MEDS: dexAMETHasone 6 MG in SYRINGE 0 ML IV SCH ×2 (00:48→04:57)
[2020-10-17] MEDS: AMPICILLIN/SULBACTAM SOD 1,500 MG in 0.9 % SODIUM CHLORIDE 100 ML IV SCH ×2 (00:48→04:57)
[2020-10-17] MEDS: SODIUM CHLORIDE 0.9% 1000ML 1,000 ML IV SCH ×2 (04:57→11:35)
[2020-10-17 06:07] LABS: Hematocrit (blood only) 43.5 % (42-52); Immature Granulocytes # (auto) 0.07 K/uL (0.00-0.02); Immature Granulocytes % (auto) 0.4 %; Lymphocytes # (auto) 0.82 K/uL (1.2-3.4); Lymphocytes % (auto) 4.7 %; Mean Corpuscular Hemoglobin 31.5 pg (25-34); Mean Corpuscular Hgb Conc 34.5 g/dL (32-36); Mean Corpuscular Volume 91.4 fL (80-100); Mean Platelet Volume 9.5 fL (7.4-10.4); Monocytes # (auto) 0.77 K/uL (0.11-0.59); Monocytes % (auto) 4.4 %; Neutrophils # (auto) 15.91 K/uL (1.4-6.5); Neutrophils % (auto) 90.5 %; Platelet Count 223 K/uL (130-400); RDW Coefficient of Variation 13.6 % (11.5-14.5); RDW Standard Deviation 45.8 fL (36.4-46.3); Red Blood Count 4.76 M/uL (4.7-6.1); White Blood Count 17.57 K/uL (4.8-10.8)
[2020-10-17 06:28] LABS: Albumin Level 2.8 gm/dl (3.4-5.0); BUN Creatinine Ratio 20.9 (10-20); Calcium 8.1 mg/dl (8.5-10.1); Creatinine Clr Calc Pharmacy 110.7 ml/min; Est GFR (African American) 119.5 ml/min; Est GFR (Non-African American) 103.1 ml/min; Potassium 3.9 mmol/L (3.5-5.1)
[2020-10-17 06:33] LABS: Albumin Globulin Ratio 0.8 (0.9-2); Bilirubin,Total 0.4 mg/dl (0.2-1); Globulin 3.3 gm/dl (2.5-4.0); Total Protein 6.1 gm/dl (6.4-8.2)
--- NOTE | 2020-10-17 09:05 | Hospitalist Progress Note ---
Date of Service October 17, 2020 Assessment & Plan (1) Peritonsillar abscess: Presents with sore throat and right-sided neck swelling along with significant uvular edema With leukocytosis, fevers and chills at home, vital signs stable here. Airway is patent on imaging and patient is able to speak but has significant trismus Rapid strep test reportedly negative at urgent care With peritonsillar abscess 3.0 x 1.5 cm of the right side seen on CT neck No evidence of sepsis at this time -Received 1 dose of IM steroids at urgent care-we will continue with dexamethasone 6 mg IV every 6 hours -Continue IV Unasyn 1.5 g IV every 6 hours-received loading dose of 3 g in the ER -Consult ENT-plans for surgical drainage -Start normal saline at 100 mL's per hour while n.p.o. -IV acetaminophen for fevers or pain -pending blood cultures (2) Uvular edema: As above Treating with antibiotics and steroids (3) Leukocytosis: Secondary to peritonsillar abscess, WBC count 17.9 Follow CBC in the morning Should improve with antibiotics and surgical drainage of abscess (4) Hyperbilirubinemia: Mildly elevated 1.1 Likely secondary to acute illness Follow LFTs in the morning (5) DVT prophylaxis: SCDs only as is going to surgical procedure Admission and Anticipated Discharge Date Admission Date: October 16, 2020 Results & Data Results & Data ([facility]) Vital Signs (Past 12 Hours) Vital Signs Temp Pulse Pulse Pulse Resp BP Pulse Ox 10/17/20 08:20 97.9 F 72 18 122/73 96 10/17/20 04:00 97.9 F 79 18 119/76 97 10/17/20 00:00 97.7 F 67 16 102/64 95 10/16/20 23:00 68 PG Care Time/CCT Total # of Minutes Spent Total Time Spent with Patient: Total time spent is greater than 50% in coordination of care (as documented) at patient's floor/unit and/or counseling patient: Coding Diagnoses Peritonsillar abscess J36 Uvular edema K13.79 Leukocytosis D72.829 Leukocytosis type: unspecified Hyperbilirubinemia E80.6 DVT prophylaxis Z29.9 (1) Leukocytosis Leukocytosis type: unspecified Qualified Code(s): D72.829 - Elevated white blood cell count, unspecified
--- NOTE | 2020-10-17 12:45 | Ears,Nose,Throat Progress Note ---
Date of Service October 17, 2020 Assessment & Plan (1) Peritonsillar abscess in pediatric patient: Much improved after I&D of right peritonsillar abscess diminishing infection, follow with p.o. Augmentin x7 days. See me in 2 weeks. Admission and Anticipated Discharge Date Admission Date: October 16, 2020 Subjective Feels much better less sore throat able to swallow and eat well Physical Exam Constitutional: WD/WN, vitals as above Eyes: PERRL, conjunctivae normal, anicteric sclerae ENMT: Mouth: + oropharynx abnormality (Much less swollen, uvula down to normal size, I&D site right, no pus) Neck: trachea midline, no thyromegaly Results & Data ([facility]) Vital Signs (Past 12 Hours) Vital Signs Temp Pulse Pulse Pulse Resp BP Pulse Ox 10/17/20 08:20 36.6 C 72 18 122/73 96 10/17/20 07:20 65 10/17/20 04:00 36.6 C 79 18 119/76 97 10/17/20 00:00 36.5 C 67 16 102/64 95
--- NOTE | 2020-10-17 16:36 | Discharge Summary ---
Date of Service October 17, 2020 Admission HPI Per Admitting Provider 50 yo WM with right side peritonsillar abcess, [address] Principal Diagnosis peritonsillar abscess s/p drainage Discharge Exam the pt is swallowing much easier neck is less swollen and eating and drinking with much less issues neck still some firmness, no stridor or respiratory distress Discharge Data Allergies Allergy/AdvReac Type Severity Reaction Status Date / Time No Known Allergies Allergy Unverified 10/16/20 13:29 Consultations 10/16/20 12:28 Consult Otolaryngology (Head and Neck) Stat 10/16/20 12:40 ED Decision to Admit Stat Procedures Performed Operation Date: 10/16/20 12:05 Actual Procedures p Right Peritonsillar Abscess Incision & Drainage(Right) - Josette Anderson MD Ordered Studies 10/16/20 10:58 CT soft tissue neck w con Stat Hospital Course (1) Peritonsillar abscess: Presents with sore throat and right-sided neck swelling along with significant uvular edema With leukocytosis, fevers and chills at home, vital signs stable here. Airway is patent on imaging and patient is able to speak but has significant trismus Rapid strep test reportedly negative at urgent care With peritonsillar abscess 3.0 x 1.5 cm of the right side seen on CT neck No evidence of sepsis on admission pending blood cultures at discharge, will be home on augmentin, follow up in the office (2) Uvular edema: As above resolving (3) Leukocytosis: Secondary to peritonsillar abscess, WBC count 17.9 (4) Hyperbilirubinemia: Mildly elevated 1.1 Likely secondary to acute illness Follow LFTs in the morning (5) DVT prophylaxis: SCDs only as is going to surgical procedure Total Time Total Time Spent Total Time Spent (In Minutes): It required greater than 30 minutes to prepare this patient for discharge Discharge Plan Discharge Items Patient Disposition: Home - Self-Care Reason For Visit: PERITONSILLAR ABSCESS Discharge Diagnosis: peritonsillar abscess s/p drainage Activity: Resume your previous activity Non-emergency contact: Primary Care Provider and Surgeon Call non-emergency contact if: you have any medication questions, your symptoms worsen, your pain is not controlled and you have a fever Follow-up/Referrals: Josette Anderson MD [Physician] - 10/22/20 1:45 pm PCP,NO [Primary Care Provider] - Diet: Regular Diet Comment: soft foods diet Addtl Attending Provider Instructions: please eat soft foods for about 5-7 days complete all of your antibiotics follow up with Dr Anderson Pending Studies at Discharge: Yes Stand-Alone Forms: My [facility], Smoking Cessation Medications and DC Order Prescriptions: New amoxicillin-pot clavulanate [Augmentin] 875-125 mg tablet 1 tab PO BID Qty: 20 RF: 0 Continued olive leaf extract 250 mg Capsule 250 mg PO BID RF: 0 Discharge Orders: Discharge Order (Routine); Ordered 10/17/20 Ordered By: Remigio Ward Admission Data Admit Date/Time: 10/16/20 13:20 Attending Provider: Remigio Ward Admit Provider: Brianda Francis Primary Care Provider: PCP,NO Other Providers: Josette Anderson ; Brianda Francis Other Interventions: Discharge Summary Assessment (RN) Last Done: 10/17/20 11:40 Coding Level of Care Code D/C Day Management >30 mins Diagnoses Peritonsillar abscess J36 Uvular edema K13.79 Leukocytosis D72.829 Leukocytosis type: unspecified Hyperbilirubinemia E80.6 DVT prophylaxis Z29.9
--- NOTE | 2020-10-18 17:37 | ENT Consultation ---
Date of Consultation October 18, 2020 Assessment & Plan (1) Peritonsillar abscess in pediatric patient: Much improved after I&D of right peritonsillar abscess diminishing infection, follow with p.o. Augmentin x7 days. See me in 2 weeks. History of Present Illness Attending Physician: Remigio Ward MD Allergies Allergy/AdvReac Type Severity Reaction Status Date / Time No Known Allergies Allergy Unverified 10/16/20 13:29 Home Medications Medication Instructions Recorded Confirmed Type olive leaf extract 250 mg PO BID 10/16/20 10/16/20 History amoxicillin-pot clavulanate 1 tab PO BID #20 tab 10/17/20 Rx [Augmentin] Patient History Medical History No pertinent past medical history Tick bites Surgical History No significant past surgical history Family History Other Cancer Heart problem Social History (Updated 10/16/20 @ 13:25 by Brianda Francis MD) Smoking Status: Former smoker Tobacco Type: Cigarettes Age Quit Using Tobacco: 33; Hx Alcohol Use: Yes Alcohol type: beer and wine Alcohol Intake Frequency: Monthly or Less Hx Substance Use: No Preferred Language: Mongolian Communication Ability: Effective 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
== END 2020-10-17 12:13 | disposition home or self-care (01) | DRG 145 ==
LOC: ED 10:42 → SUATTDRO 13:20 → 2E 13:20